=== PATIENT | male | born 1970 | race Caucasian/White ===

== ENCOUNTER 2021-01-05 20:10 | Inpatient (IN) | payer OTHER ==
[~2021-01-05] VITALS: Ht 182.9 cm; Wt 92.6 kg
[~2021-01-05 20:10] MED LIST: AMOCLA500 PO; AMOX500 PO; ANTOXYBENA OT; CEPH500 PO; CIPHYDOTSU AD; HYDACE5 PO; NAPR500 PO; OXYACE5T PO; RXCLIN PO; SULTRIDS PO
[2021-01-05 21:18] LABS: BASOPHILS ABSOLUTE AUTO 0.04 K/mm3 (0.00-0.23); BASOPHILS PERCENT AUTO 0 % (0-2); EOSINOPHILS ABSOLUTE AUTO 0.07 K/mm3 (0.00-0.68); EOSINOPHILS PERCENT AUTO 0 % (0-6); Hematocrit 37.5 % (37.0-53.0); Hemoglobin 12.9 g/dL (13.5-17.5); IMMATURE GRAN ABSOLUTE AUTO 0.09 K/mm3 (0.00-0.10); IMMATURE GRAN PERCENT AUTO 1 % (0-1); LYMPHOCYTES ABSOLUTE AUTO 2.08 K/mm3 (0.84-5.20); LYMPHOCYTES PERCENT AUTO 12 % (21-46); MONOCYTES ABSOLUTE AUTO 1.36 K/mm3 (0.16-1.47); MONOCYTES PERCENT AUTO 8 % (4-13); Mean Corpuscular HGB 31.2 pg (26.0-34.0); Mean Corpuscular HGB Conc 34.4 g/dL (31.5-36.5); Mean Corpuscular Volume 91 fL (80-100); Mean Platelet Volume 9.8 fL (9.1-12.4); NEUTROPHILS ABSOLUTE AUTO 14.41 K/mm3 (1.96-9.15); NEUTROPHILS PERCENT AUTO 80 % (41-73); Platelet Count 414 K/mm3 (150-400); RDW Coefficient Variation 13.2 % (11.7-14.2); RDW Standard Deviation 43.8 fL (35.1-46.3); Red Blood Cell Count 4.14 M/mm3 (4.30-5.90); White Blood Cell Count 18.05 K/mm3 (4.00-11.30)
[2021-01-05 21:36] LABS: Alanine Aminotransfer (ALT/SGP 39 U/L (12-78); Albumin, Blood 3.9 g/dL (3.4-5.0); Albumin/Globulin Ratio 0.9 (0.8-1.8); Alk Phos 132 U/L (50-136); Anion Gap 9 mmol/L (6-16); Aspartate Aminotrans (AST/SGOT 29 U/L (12-37); Bilirubin, Total 0.5 mg/dL (0.1-1.0); Blood Urea Nitrogen 9 mg/dL (8-24); Bun/Creatinine Ratio 9.1 (12.0-20.0); CO2, Blood 22 mmol/L (21-32); Calcium, Blood 9.1 mg/dL (8.5-10.1); Chloride, Blood 102 mmol/L (98-108); Creatinine, Blood 0.99 mg/dL (0.60-1.20); Globulin, Blood 4.4 g/dL (2.2-4.0); Glomerular Filtration Rate >60 (60-); Glucose, Blood 88 mg/dL (70-99); Sodium, Blood 133 mmol/L (136-145); Total Protein, Blood 8.3 g/dL (6.4-8.2)
[2021-01-06 01:29] LABS: SARS-Cov-2 (COVID-19) PCR, MMC NEGATIVE (NEGATIVE)
--- NOTE | 2021-01-06 02:03 | NUR ---
ADMIT NEW ER ADMIT WITH LEFT HAND INFECTION. ADDED ON FOR SURGERY TODAY WITH DR. PICKETT. NPO. IVF INFUSING PER ORDERS. PT REPORTS PAIN TOLERABLE AT THIS TIME. LEFT HAND WITH MODERATE SWELLING DECREASING ROM TO FINGERS. ORIENTED TO ROOM AND CALL LIGHT.
--- NOTE | 2021-01-06 04:28 | NUR ---
SHIFT SUMMARY NO ACUTE CHANGES SINCE ADMIT. PT HAS RESTED WELL. IVF INFUSING PER ORDERS. NPO AWAITING FOR ORTHO CONSULT. CALL LIGHT WITHIN REACH.
[2021-01-06 08:49] LABS: International Normalized Ratio 1.01; Prothrombin Time Results 10.9 Sec (9.7-11.5)
--- NOTE | 2021-01-06 14:23 | NUR ---
PT TRANSFERED TO [facility]IA [facility] FROM FLOOR. History, Chart, Medications and Allergies reviewed before start of procedure. Lungs clear T/O to Auscultation. Lungs clear T/O to Auscultation. Patient confirms NPO status and agrees with scheduled surgery. Pre-Op teaching done. Pt verbalizes understanding.
--- NOTE | 2021-01-06 18:03 | NUR ---
SHIFT SUMMARY PATIENT ALERT AND ORIENTED THROUGHOUT SHIFT. WENT FOR I&D OF LEFT HAND WITH DR PICKETT. BACK IN ROOM, POST OP VSS, TOLERATING REGULAR DIET AND FLUIDS. SALINE LOCKED. NO VOID AT THIS TIME. PAIN CONTROLLED WITH PO AND IV PAIN MEDS. SEE EMAR. LEFT HAND IN MICHEAL WRAP. FINGERS WARM, DENIES N/T, BRISK CAP REFILL.
[2021-01-06 22:45] LABS: Vancomycin, Trough 13.3 ug/mL (5.0-10.0)
--- NOTE | 2021-01-07 06:23 | NUR ---
SHIFT SUMMARY POD1 L HAND I&D, A/O X4, VSS, TOLERATING PO, INDEPENDENT IN ROOM, REPORTS PAIN TOLERABLE T/O MOST OF THE SHIFT, 1 DOSE PAIN MED GIVEN THIS MORNING (SEE EMAR), NO ACUTE EVENTS THIS SHIFT. CALL LIGHT IN REACH, WILL CTM AND REPORT TO DAY RN.
--- NOTE | 2021-01-07 16:31 | NUR ---
REPORT RECEIVED FROM STEPHANIE CALIXTO. ASSUMED CARE OF PT AT THIS TIME
--- NOTE | 2021-01-07 17:20 | NUR ---
SUMMARY: NO CHANGE SINCE ASSUMED PT CARE. PT IS POD1 I AND D OF L HAND. CONTINUING ABX, MEDICATED X1 FOR PAIN. DR. BLAS CHANGED DRESSING AT BEDSIDE TODAY, CDI. WILL CTM, PLAN FOR POSSIBLE DC TOMORROW.
--- NOTE | 2021-01-08 07:20 | NUR ---
SHIFT SUMMARY POD2 L HAND I&D, A/O X4, VSS, TOLERATING PO, PAIN WELL MANAGED PER EMAR, INDEPENDENT IN THE ROOM, HAND HAS SOME SWELLING BUT FINGERS HAVE GOOD COLOR AND ABLE TO WIGGLE AND GOOD CAP REFILL, POSSIBLE DC TODAY PER PRIOR DAY RN REPORT. NO ACUTE EVENTS THIS SHIFT. CALL LIGHT IN REACH, REPORT GIVEN TO DAY RN.
[2021-01-08 07:41] LABS: Creatinine, Blood 0.73 mg/dL (0.60-1.20); Vancomycin, Trough 15.7 ug/mL (5.0-10.0)
[2021-01-08] MEDS ORDERED: LEVFLO500 PO (12:28)
[2021-01-08] MEDS ORDERED: Norco 5-325 Ta1 EACH PO (12:28)
--- NOTE | 2021-01-08 12:48 | NUR ---
DISCHARGE INSTRUCTIONS REVIEWED WITH PATIENT AND PRESCRIPTIONS GIVEN. PT PROVIDED WITH DRESSING SUPPLIES AND STATES HE IS COMFORTABLE HAVING HIS GIRLFRIEND CHANGE THE DRESSING DAILY. PT REPORTS PAIN IS CONTROLLED. LEFT HAND DRESSING CLEAN, DRY AND INTACT, PT DISCHARGED TO HOME AMBULATORY
== END 2021-01-08 12:50 | disposition home or self-care (01) | DRG 514 ==
LOC: ER 20:10 → SURS 20:11
PROVIDERS: Pharmacist; Physician Assistant; ADMIT Orthopaedic Surgery
PROC: 0JBK0ZZ Excision of Left Hand Subcutaneous Tissue and Fascia, Open Approach (ICD-10-PCS; principal; 2021-01-06 14:45)
DX: M65.142 Other infective (teno)synovitis, left hand (principal); Z20.822 Contact with and (suspected) exposure to COVID-19; F31.9 Bipolar disorder, unspecified; Z88.5 Allergy status to narcotic agent; Z98.890 Other specified postprocedural states
CPT/HCPCS: 36415; 73130; 80053; 80202; 82565; 83605; 85025; 85610; 85651; 85730; 86140; 86141; 87070; 87075; 87077; 87147; 87186; 87205; 96365; 96366; 96368; 96375; 96376; 97110; 97165; 99284-25; A9270; G0378; J0696; J1100; J1885; J2250; J2270; J2405; J2704; J3010; J3370; J7050; J7120; U0004

== ENCOUNTER 2021-12-22 20:56 | Emergency (ER) | payer OTHER ==
[~2021-12-22] VITALS: Ht 185.4 cm; Wt 95.2 kg
[~2021-12-22 20:56] MED LIST changes: +LEVFLO500 PO; +Norco 5-325 Ta1 EACH PO
== END 2021-12-22 21:33 | disposition home or self-care (01) ==
LOC: ER 20:56
DX: S01.01XA Laceration without foreign body of scalp, initial encounter (principal); W20.8XXA Other cause of strike by thrown, projected or falling object, initial encounter
CPT/HCPCS: 12001; 99282-25

== ENCOUNTER 2022-01-10 14:18 | Emergency (ER) | payer OTHER ==
[~2022-01-10] VITALS: Ht 188 cm; Wt 90.7 kg
== END 2022-01-10 15:19 | disposition home or self-care (01) ==
LOC: ER 14:18
DX: Z48.02 Encounter for removal of sutures (principal); F17.200 Nicotine dependence, unspecified, uncomplicated
CPT/HCPCS: 99281

== ENCOUNTER 2023-03-03 23:47 | Emergency (ER) | payer OTHER ==
[~2023-03-03] VITALS: Ht 188 cm; Wt 93.0 kg
[2023-03-04 00:11] VITALS: BP 142/85
== END 2023-03-04 00:48 | disposition home or self-care (01) ==
LOC: ER 23:47
DX: S76.912A Strain of unspecified muscles, fascia and tendons at thigh level, left thigh, initial encounter (principal); W22.8XXA Striking against or struck by other objects, initial encounter
CPT/HCPCS: 99283

== ENCOUNTER 2023-03-06 10:30 | Emergency (ER) | payer OTHER ==
[~2023-03-06] VITALS: Ht 188 cm; Wt 93.0 kg
[2023-03-06] MEDS ORDERED: OLAN5 PO (12:12)
[2023-03-06 13:30] VITALS: BP 143/80
== END 2023-03-06 14:13 | disposition home or self-care (01) ==
LOC: ER 10:30
DX: S70.12XA Contusion of left thigh, initial encounter (principal); X58.XXXA Exposure to other specified factors, initial encounter; Z79.899 Other long term (current) drug therapy
CPT/HCPCS: 76882; 96372; 99283-25; J1885